=== PATIENT | female | born 1940 | race Caucasian/White ===

== ENCOUNTER 2016-07-29 19:27 | Emergency (ER) | payer MEDICARE, OTHER ==
--- NOTE | ~2016-07-29 | CR63 ---
[facility] A Service of [facility] & [facility] RADIOLOGY TEXT RESULTS PATIENT: GRACE GROVES LOCATION: SED : 42 UNIT #: [id number] AGE: [address]: Dilip Lo MD SEX: F ORDER DR: [id number] [place] [id number] E MR#: [id number] Acc #: [id number] NAME: GRACE GROVES : 1940 SEX: F STUDY DATE/TIME: 07/29/2016 19:19 UNIT: SED ROOM: STUDY DESCRIPTION: CR Chest 2 View Attending Physician: Dilip Lo M.D. Ordering Physician: Dilip Lo M.D. Primary Care Physician: No Primary Care Physician MEDICAL IMAGING REPORT This report is preliminary unless electronic signature is present. EXAM 2 views chest 07/29/2016 HISTORY Cough, 2 weeks duration, short of air, left ear ache. FINDINGS PA and lateral radiographs of chest are presented without prior studies for comparison. There are mild degenerative changes in the spine. Heart and mediastinum within normal limits of size and contour. Linear areas of scarring in the [id number] lung zones bilaterally. There is no compelling evidence of acute infectious or inflammatory disease, pleural effusion, or pneumothorax. No suspicious nodule. Surgical clips in the upper abdomen. Dictated by... Florencio Squires M.D. THIS IS AN ELECTRONICALLY VERIFIED REPORT Florencio Squires M.D. at 07/31/2016 4:25 PM AMAIRANI/adrian TD: 07/30/2016 12:04 JOB #: [id number] MEDICAL IMAGING REPORT
[~2016-07-29 19:27] MED LIST: NO MEDICATIONS; VITAMIN D400 UNI2
[2016-07-29 19:33] LABS: INFLUENZA A NEG (NEG); INFLUENZA B NEG (NEG)
[2016-07-29] MEDS ORDERED: ZITHROMAX1 G/PKT PO (20:20)
[2016-07-29] MEDS ORDERED: NORVASC10 MG PO (20:20)
[2016-07-29] MEDS ORDERED: ALBUTEROL17 GM INH (20:21)
[2016-07-29] MEDS ORDERED: HYDROMET SYRUP480 ML PO (20:22)
== END 2016-07-29 20:22 | disposition home or self-care (01) ==
LOC: SED 19:27
PROVIDERS: Emergency Medicine
DX: J20.9 Acute bronchitis, unspecified (principal); J01.00 Acute maxillary sinusitis, unspecified; J01.10 Acute frontal sinusitis, unspecified; J44.9 Chronic obstructive pulmonary disease, unspecified; I10 Essential (primary) hypertension; Z90.49 Acquired absence of other specified parts of digestive tract; Z90.710 Acquired absence of both cervix and uterus; Z91.013 Allergy to seafood
CPT/HCPCS: 71020; 87804; 94640; 99284